=== PATIENT | male | born 1990 | race Caucasian/White ===

== ENCOUNTER 2017-03-12 13:42 | Emergency (ER) | payer SELFPAY ==
[2017-03-12 13:51] VITALS: RESP 16; TEMP 98.2; O2SAT 100
--- NOTE | 2017-03-12 13:58 | C.PDOC ---
History Of Present Illness 26 y/o M c no PMHx p/w skin darkening x 4 days. Patient states that there are 2 small spots on his LLQ that have turned black, making him concerned that the blood in his body is not pumping correctly. He states that he feels pain in this area that spreads to the entire L side of his head, face, body and extremities that causes everything to be numb. He also states that he feels the nerve that runs along his penis is clogged. He denies ever having sex, fever, weakness, chest pain. Time Seen by Provider: 03/12/17 13:55 Chief Complaint (Nursing): Abdominal Pain Past Medical History Vital Signs: Last Vital Signs Temp 98.2 F 03/12/17 13:51 Pulse 76 03/12/17 13:51 Resp 16 03/12/17 13:51 BP 129/82 03/12/17 13:51 Pulse Ox 100 03/12/17 14:41 Family History: States: No Known Family Hx Review Of Systems Except As Marked, All Systems Reviewed And Found Negative. Constitutional: Negative for: Fever Cardiovascular: Negative for: Chest Pain Physical Exam - Physical Exam Additional Physical Exam Comments: Constitutional: No acute distress. Head: Normocephalic. Atraumatic. Eyes: PERRL. EOMI. ENT: Moist mucous membranes. Neck: Supple. Cardiovascular: Regular rate. Radial and DP pulses 2+ bilaterally. Chest: No tenderness. Respiratory: Clear to auscultation bilaterally. GI: Soft. Nontender. Nondistended. Back: No CVA tenderness. Musculoskeletal: No tenderness or swelling of extremities. Skin: Extremities equally warm. 2 punctate ecchymoses on LLQ with surrounding erythema (patient states he has been rubbing the area) Neurologic: Alert, motor 5/5 x 4. Gait steady. Patient reports subjective numbness to L extremities but states sensation is intact. ED Course And Treatment - Laboratory Results Result Diagrams: 03/12/17 14:31 03/12/17 14:31 O2 Sat by Pulse Oximetry: 100 (room air ) - Radiology CXR: Viewed By Me, Read By Radiologist CXR Interpretation: Yes: No Acute Disease, Other (No focal consolidation, significant pleural effusion, or definite pneumothorax identified.) Nexus Criteria: Negative Medical Decision Making Medical Decision Making: Labs, urine, CT head, CXR. Patient with no measurable focal deficit and also with symptoms for 4 days. Patient states he has had similar symptoms in the past as well that lasted 2 days and self resolved. I instructed patient to follow up with primary care for further evaluation. FINDINGS: LUNGS: No focal consolidation. Scattered probable calcified granulomas. PLEURA: No significant pleural effusion identified. No definite pneumothorax . CARDIOVASCULAR: The cardiomediastinal silhouette appears within normal limits of size. OSSEOUS STRUCTURES: No acute osseous abnormality identified. VISUALIZED UPPER ABDOMEN: Unremarkable. OTHER FINDINGS: None. IMPRESSION: No focal consolidation, significant pleural effusion, or definite pneumothorax identified. FINDINGS: HEMORRHAGE: No intracranial hemorrhage. BRAIN: No mass effect or edema. No atrophy or chronic microvascular ischemic changes.Please note that MRI with diffusion imaging is more sensitive in the detection of acute ischemic event. VENTRICLES: No hydrocephalus. CALVARIUM: Unremarkable. PARANASAL SINUSES: Unremarkable as visualized. No significant inflammatory changes. MASTOID AIR CELLS: Unremarkable as visualized. No inflammatory changes. OTHER FINDINGS: None. IMPRESSION: No acute intracranial pathology identified. Disposition - Disposition Referrals: [facility] [Outside] [facility] [Outside] Disposition: HOME/ ROUTINE Disposition Time: 15:44 Condition: STABLE Instructions: Paresthesia (ED) Forms: [employer] (Greek) - Clinical Impression Clinical Impression: Ecchymosis, Numbness
--- NOTE | 2017-03-12 14:31 | RAD ---
HISTORY: r/o PNA COMPARISON: None available. TECHNIQUE: Chest PA and lateral FINDINGS: LUNGS: No focal consolidation. Scattered probable calcified granulomas. PLEURA: No significant pleural effusion identified. No definite pneumothorax . CARDIOVASCULAR: The cardiomediastinal silhouette appears within normal limits of size. OSSEOUS STRUCTURES: No acute osseous abnormality identified. VISUALIZED UPPER ABDOMEN: Unremarkable. OTHER FINDINGS: None. IMPRESSION: No focal consolidation, significant pleural effusion, or definite pneumothorax identified.
[2017-03-12 14:34] LABS: BASO % 0.4 % (0.0-2.0); EOS # 0.1 K/uL (0.0-0.7); EOS % 1.1 % (0.0-4.0); HEMATOCRIT 42.2 % (35.0-51.0); LYMPH % 23.5 % (20.0-40.0); MEAN CORPUSCULAR HEMOGLOBIN 28.3 pg (27.0-31.0); MEAN CORPUSCULAR HGB CONC 32.9 g/dL (33.0-37.0); MEAN PLATELET VOLUME 7.6 fL (7.2-11.7); MONO # 0.5 K/uL (0.0-0.8); MONO % 6.5 % (0.0-10.0); RED CELL DISTRIBUTION WIDTH 12.6 % (11.5-14.5); WHITE BLOOD COUNT 8.3 K/uL (4.8-10.8)
[2017-03-12 14:37] LABS: URINE BILIRUBIN NEGATIVE (NEGATIVE); URINE BLOOD NEGATIVE (NEGATIVE); URINE COLOR Colorless (YELLOW); URINE GLUCOSE (UA) NORMAL (Normal); URINE KETONE NEGATIVE (NEGATIVE); URINE LEUKOCYTE ESTERASE NEG Leu/uL (Negative); URINE PROTEIN NEGATIVE (NEGATIVE); URINE UROBILINOGEN NORMAL mg/dL (0.2-1.0)
[2017-03-12 14:42] LABS: CHLORIDE 100 mmol/L (98-107); SODIUM 138 mmol/L (132-148)
[2017-03-12 14:43] LABS: POTASSIUM 3.8 mmol/L (3.6-5.2)
[2017-03-12 14:45] LABS: ALB/GLOB RATIO 1.5 (1.0-2.1); ALKALINE PHOSPHATASE 93 U/L (38-126); ALT/SGPT 27 U/L (21-72); AST/SGOT 15 U/L (17-59); BILIRUBIN,TOTAL 0.7 mg/dL (0.2-1.3); BLOOD UREA NITROGEN 12 mg/dL (9-20); CALCIUM 9.4 mg/dl (8.6-10.4); CARBON DIOXIDE 26 mmol/L (22-30); GFR AFRICAN-AMERICAN > 60; GLUCOSE,RANDOM 98 mg/dL (75-110)
--- NOTE | 2017-03-12 15:04 | CT ---
PROCEDURE: CT HEAD WITHOUT CONTRAST. HISTORY: L sided numbness COMPARISON: None available. TECHNIQUE: Axial computed tomography images were obtained through the head/brain without intravenous contrast. Radiation dose: Total exam DLP = 921.83 mGy-cm. This CT exam was performed using one or more of the following dose reduction techniques: Automated exposure control, adjustment of the mA and/or kV according to patient size, and/or use of iterative reconstruction technique. FINDINGS: HEMORRHAGE: No intracranial hemorrhage. BRAIN: No mass effect or edema. No atrophy or chronic microvascular ischemic changes.Please note that MRI with diffusion imaging is more sensitive in the detection of acute ischemic event. VENTRICLES: No hydrocephalus. CALVARIUM: Unremarkable. PARANASAL SINUSES: Unremarkable as visualized. No significant inflammatory changes. MASTOID AIR CELLS: Unremarkable as visualized. No inflammatory changes. OTHER FINDINGS: None. IMPRESSION: No acute intracranial pathology identified.
[2017-03-12 16:07] VITALS: BP 122/70; PULSE 72
== END 2017-03-12 16:17 | disposition home or self-care (01) ==
LOC: C.ER 13:42
DX: R58 Hemorrhage, not elsewhere classified (principal); R20.9 Unspecified disturbances of skin sensation